=== PATIENT | female | born 1980 | race Caucasian/White ===

== ENCOUNTER 2025-03-24 16:47 | Emergency (ER) | payer BC, SELFPAY ==
[2025-03-24 17:21] VITALS: BP 147/95; PULSE 77; RESP 16; TEMP 36.3; O2SAT 100
--- NOTE | 2025-03-24 18:07 | ED.URI ---
HPI - URI/Sore Throat General Chief Complaint: Upper Respiratory Infection Stated Complaint: ?Sinus Infection Time Seen by Provider: 03/24/25 18:07 Source: patient and RN notes reviewed Mode of arrival: ambulatory Limitations: no limitations History of Present Illness HPI Narrative: 44-year-old female presented for complaint of nasal congestion and drainage with sinus pressure. Worsening for 1 week. Denies cough, shortness of breath, wheezing nausea vomiting, fevers or lethargy. She is taking ibuprofen, and Mucinex without much improvement. MD elicited complaint: cough Related Data Allergies Allergy/AdvReac Type Severity Reaction Status Date / Time No Known Allergies Allergy Verified 03/24/25 17:38 Review of Systems Review of Systems: per HPI Exam Narrative: GENERAL: mildly Ill-appearing, nontoxic no acute distress. EYES: conjunctivae clear ENT: Mucous membranes moist. TMs pearly crum with dull light reflex bilaterally; no tragal tenderness. Oropharynx mildly erythematous without lesions or exudate, no drooling, no hoarseness, no trismus, uvula midline. No tripod positioning, muffled voice, soft palate or pharyngeal wall bulging NECK: Supple. No lymphadenopathy CHEST: Clear to auscultation, breath sounds equal. No wheezing, rhonchi, rales, or stridor. No respiratory distress, speaks in full sentences. HEART: Regular rate and rhythm. No murmur heard. SKIN: Warm, dry, no rash. NEURO: Alert and oriented x3. PSYCH: Normal mood and affect Course Course Level of Care: Express Care Visit Vital Signs Vital signs: Vital Signs Temperature 97.4 F L 03/24/25 17:21 Pulse Rate 77 03/24/25 17:21 Respiratory Rate 16 03/24/25 17:21 Blood Pressure 147/95 H 03/24/25 17:21 Pulse Oximetry 100 03/24/25 17:21 Temperature 97.4 F L 03/24/25 17:21 Pulse Rate 77 03/24/25 17:21 Respiratory Rate 16 03/24/25 17:21 Blood Pressure 147/95 H 03/24/25 17:21 Pulse Oximetry 100 03/24/25 17:21 MDM MDM Narrative Medical decision making narrative: Discussed physical exam findings c/w sinusitis. Reviewed RX. Advised supportive measures and signs/symptoms to go to the ER. Pt is appropriate for outpt treatment and f/u. Differential Diagnosis Differential Diagnosis: Influenza, covid, sinusitis, OM, strep pharyngitis, URI Discharge Plan Discharge Clinical Impression: Sinusitis Patient Disposition: Home Condition: Stable Instructions: Antibiotic Form, Sinusitis (ED) Additional Instructions: Recommend Flonase spray and Zyrtec (or Claritin/Ava) Motrin and Tylenol every 8 hours as needed for pain Symptomatic treatment includes: rest, fluids, and increase humidity of the air at home. Follow up with your primary care provider in 1 week. Go to the ER for worsening symptoms or concerns. Patient Language: [place] Prescriptions: New amoxicillin-pot clavulanate 875-125 mg tablet 1 tablet PO Q12H 7 Days Qty: 14 0RF Follow-up/Referrals: UNKNOWN,DOCTOR [Primary Care Provider] Time of Disposition: 18:13
== END 2025-03-24 18:14 | disposition home or self-care (01) ==
PROVIDERS: Emergency Provider Nurse Practitioner Family
DX: J32.9 Chronic sinusitis, unspecified (principal)
CPT/HCPCS: 99203; G0463